=== PATIENT | female | born 1990 | race Caucasian/White ===

== ENCOUNTER → 2023-10-25 10:10 | Outpatient (CLI) | payer OTHER, SELFPAY | PROVIDERS: Visit Provider Physician Assistant | DX: J02.9 Acute pharyngitis, unspecified (principal) | CPT/HCPCS: 87070 ==

== ENCOUNTER 2024-05-24 11:42 | Day surgery (SDC) | payer OTHER, SELFPAY ==
[2024-05-16 12:04] VITALS: BMI 30.7
--- NOTE | 2024-05-24 | PATH_ITS ---
[facility] Accession Number: [id number] No. of containers..01 Tissue . 01 Material submitted: . fallopian tube - BILATERAL FALLOPIAN TUBES . 01 Diagnosis: BILATERAL FALLOPIAN TUBES, BILATERAL SALPINGECTOMY: Complete cross-section of bilateral fimbriated falloipian tubes with benign paratubal cyst. MRV 05/28/2024 1256 Local . 01 Electronically signed: . Sulma Boyce MD, Pathologist NPI- [id number] . 01 Gross description: . Received in formalin with two identifiers and bilateral fallopian tubes are unoriented fimbriated fallopian tubes, 7.0 x 0.9 cm and 5.8 x 0.6 cm. Both tubes have violaceous, smooth serosa with a pedunculated cystic structure on the longer tube, 0.7 cm in greatest dimension filled with falk, serous fluid. The lumens are stellate and unremarkable. Computer Forensic Examiner sections to include one-half of bisected fimbriae and cross-sections are submitted as follows: . A1: Longer fallopian tube. A2: Needmore fallopian tube. ([id number]) /MRV 05/25/2024 1618 Local . 01 Pathologist provided ICD-10: Z30.2 . 01 CPT . 736363 Specimen Comment: A courtesy copy of this report has been sent to [phone] Performed at: [address] [address], [place], [place] [id number] MD Mukesh Carmona MD Phone: [phone]
[2024-05-24] MEDS: ACETAMINOPHEN IV 1,000 MG/100 ML VIAL 400 MG IV (11:54)
[2024-05-24] MEDS: LACTATED RINGERS 1,000 ML 42 ML IV (11:54)
[2024-05-24] MEDS: SCOPOLAMINE 1 PATCH TOP (11:55)
[2024-05-24 11:58] VITALS: BMI 30.7
--- NOTE | 2024-05-24 12:17 | PM.PREOP ---
Pre-operative Note COVID-19 COVID-19 status: Not tested Interval Note History & Physical reviewed/Exam performed by Physician: Yes Changes to H&P: No
--- NOTE | 2024-05-24 12:43 | SUR.OPER ---
Lithotomy on padded OR bed. Powers Pad Positioner under torso. Head on pillow, arms padded and tucked at sides. Legs secured in padded yellow fins stirrups.
[2024-05-24] MEDS: BUPIVACAINE 0.5% W/ EPI (PF) 30 ML VIAL INJ (13:07)
--- NOTE | 2024-05-24 13:26 | P.OP_ITS ---
Operative Date/Time/Diagnoses Date of procedure: 05/24/24 Time of procedure: 12:30 Pre-op diagnosis: Request for sterilization Post-op diagnosis: same Procedure & Clinicians Procedure: Procedures Operation Date: 05/24/24 13:15 Actual Procedure Side Surgeon p Laparoscopic Salpingectomy Bilateral Sunil Israel MD Indications: Areli is a 33-year-old , LMP 05/09/2024 who presents today to discuss the possibility of elective sterilization. Her has said he is open to vasectomy but she herself wants to take affirmative steps herself to prevent in the future. Patient has no history of prior pelvic or abdominal surgery. She has regular predictable menses. She is well informed regarding options for long-acting and other forms of contraception but is firm in her decision to proceed with sterilization. Areli is a 33-year-old , LMP 02/24/2024 who presents today to discuss the possibility of elective sterilization. Her has said he is open to vasectomy but she herself wants to take affirmative steps herself to prevent in the future. Patient has no history of prior pelvic or abdominal surgery. She has regular predictable menses. She is well informed regarding options for long- acting and other forms of contraception but is firm in her decision to proceed with sterilization and she returns today for her scheduled surgery Surgeon: Sunil Israel Anesthesia Type: General Operative Notes Findings: Normal pelvis. The remainder of the abdomen was normal to laparoscopic visualization. Closure Type: primary Specimen(s): none Estimated blood loss (mL): 5 Blood products transfused: none Procedure in detail: With the patient under satisfactory general anesthesia in the modified dorsal lithotomy position, the perineum, vagina, and abdomen were prepped and draped for IUD removal and laparoscopic bilateral salpingectomy. A pre-surgical safety time-out was then taken in accordance with [facility] OR protocols. The umbilicus was then infiltrated with 0.5% Marcaine with epinephrine and 1 cm vertical incision was made in the inferior aspect of the umbilicus. Veress needle was used to insufflate the abdomen with carbon dioxide and once appropri ately insufflated, 5 mm bladeless trocar and sleeve were inserted through the incision. Proper placement of the sleeve was confirmed with laparoscopic visualization and insufflation of the abdomen continued. A 2nd and 3rd 5 mm laparoscopic port were placed in the right and left mid quadrants using a similar technique and using a 3 puncture technique, the abdomen and pelvis were visualized with the findings as noted above. The distal aspect of the left fallopian tube was then grasped with a grasping forceps and using a Power Seal device, fimbria ovarica was coagulated and divided the dissection using the Power Seal continuing across the mesosalpinx to the cornua where the base fallopian tube was coagulated and divided. The left fallopian tube was then removed through one of the ports and submitted pathologic specimen. Attention was then turned to the right adnexa with distal tube grasped with a grasping forcep. The Power Seal device was then used to coagulate fimbria ovarica and t he dissection was carried across the mesosalpinx to the cornua where the fallopian tube on the right side was amputated at the cornua following coagulation proximal tube the Power Seal device. Pelvis was inspected and there were no abnormalities noted following bilateral salpingectomy. The pneumoperitoneum was then vented and the ports removed from the abdominal wall. Port incisions were then closed with 4-0 Monocryl using inverted interrupted stitches and skin glue was applied. Appropriate dressings were then applied, patient was awakened, and transferred to the PACU for a period of observation after having tolerated the procedure well. Complications: none Post-operative Condition: stable Disposition: PACU Plan for aftercare: Routine postoperative care with follow-up planned for 2 weeks after surgery
[2024-05-24 13:27] VITALS: BP 123/72; PULSE 96; RESP 12; TEMP 36.2; O2SAT 97
[2024-05-24 13:32] VITALS: BP 117/75; PULSE 83; RESP 10; O2SAT 97
[2024-05-24 13:37] VITALS: BP 115/71; PULSE 76; RESP 14; O2SAT 98
[2024-05-24 13:46] VITALS: BP 125/82; PULSE 77; RESP 15; O2SAT 99
[2024-05-24 13:51] VITALS: BP 122/82; PULSE 64; RESP 13; O2SAT 100
[2024-05-24 14:39] VITALS: BP 117/80; PULSE 64; RESP 16; TEMP 36.1; O2SAT 100
== END 2024-05-24 14:59 | disposition home or self-care (01) ==
PROVIDERS: Referring Provider Obstetrics & Gynecology; Visit Provider Obstetrics & Gynecology
PROC: 0UT74ZZ Resection of Bilateral Fallopian Tubes, Percutaneous Endoscopic Approach (ICD-10-PCS; CPT 58661; principal; 2024-05-24 13:15)
DX: Z30.2 Encounter for sterilization (principal)
CPT/HCPCS: 58661; J0131; J1100; J1885; J2250; J2405; J2704; J3010